=== PATIENT | male | born 1985 | race Caucasian/White ===

== ENCOUNTER → 2020-10-05 09:17 | Outpatient (CLI) | payer BC, SELFPAY ==
--- NOTE | ~2020-10-05 | XR_ITS ---
EXAMINATION: XR shoulder RT min 2V DATE: 10/05/2020 10:01 INDICATION: Right rotator cuff tendinitis. TECHNIQUE: AP internally and externally rotated, AP oblique externally rotated and axillary views of the right shoulder were obtained. COMPARISON: None FINDINGS: Normal alignment. No fracture. Glenohumeral joint is normal. Acromioclavicular joint is normal. Bone island at the right glenoid. Soft tissues are unremarkable. Right lung is clear. IMPRESSION: Negative right shoulder radiographs. Reviewed, dictated and finalized at location A.
== END ==
PROVIDERS: PCP Physician Assistant; Visit Provider Physician Assistant
DX: M67.813 Other specified disorders of tendon, right shoulder (principal)
CPT/HCPCS: 73030

== ENCOUNTER → 2022-10-11 09:39 | Outpatient (CLI) | payer OTHER, SELFPAY ==
--- NOTE | ~2022-10-11 | US_ITS ---
Limited Abdominal Sonogram: Real-time sonographic imaging of the right upper quadrant was performed. Clinical History: Abnormal liver enzymes Findings: The liver appears normal with no evidence of mass lesion or bile duct dilatation. Main por kelly vein demonstrates normal direction of flow. The gallbladder is absent, compatible prior cholecyst ectomy. The common bile duct measures 4 mm. The visualized pancreas, aorta, and IVC are unremarkable . Impression: Status post cholecystectomy, otherwise unremarkable exam. Reviewed, dictated and finalized at location M. Impression: Status post cholecystectomy, otherwise unremarkable exam.
== END ==
PROVIDERS: PCP Internal Medicine Endocrinology, Diabetes & Metabolism; Visit Provider Internal Medicine Endocrinology, Diabetes & Metabolism
DX: R74.01 Elevation of levels of liver transaminase levels (principal); Z90.49 Acquired absence of other specified parts of digestive tract
CPT/HCPCS: 76705

== ENCOUNTER 2024-06-27 13:31 | Emergency (ER) | payer BC, SELFPAY ==
--- NOTE | ~2024-06-27 | XR_ITS ---
Right foot Technique: AP, oblique, and lateral views were obtained. Clinical History: Injury Findings: No acute fracture or dislocation is seen. Chronic avulsion fracture at the talar head noted . Osseous alignment is anatomic. Joint spaces are preserved without erosive or degenerative change. S oft tissues are unremarkable. Impression: No acute abnormality. Chronic avulsion fracture of the talar head. Reviewed, dictated and finalized at location . Impression: No acute abnormality. Chronic avulsion fracture of the talar head.
--- NOTE | 2024-06-27 13:34 | ED_ITS ---
HPI - Extremity Injury (Lower) General Chief Complaint: Extremity Injury, Lower Stated Complaint: Injured Foot Time Seen by Provider: 06/27/24 13:57 Source: patient and RN notes reviewed Mode of arrival: ambulatory Limitations: no limitations History of Present Illness HPI Narrative: 38 year old male presents with concern right foot pain. He reports 2 weeks ago he rolled the ankle continue to have right pain. Reports after the injury he used ice, elevation, ibuprofen, rest. He reports symptoms started to improve but the foot started hurting again. He denies any new injury. He reports lateral foot pain and pain proximal to the digits 3, 4, 5. He denies decreased strength, sensation, range of motion. MD complaint: foot injury Related Data Home Medications ?Medication ?Instructions ?Recorded ?Confirmed ?Last Taken ?Type pantoprazole 40 mg tablet,delayed mg PO 06/27/24 Unknown History release Allergies Allergy/AdvReac Type Severity Reaction Status Date / Time No Known Allergies Allergy Verified 04/03/13 11:15 Review of Systems Review of Systems: CONSTITUTIONAL: Denies malaise, chills, sweats, or fever. SKIN: Denies rash or itching, open skin, laceration, abrasion, redness, warmth, swelling. MUSCULOSKELETAL: Reports right foot pain NEUROLOGIC: Denies numbness, weakness All systems reviewed & are unremarkable except as noted in HPI and below PMFSH Family History Family History (Updated 11/20/13 @ 07:13 by DOCTOR UNKNOWN) Mother Hypertension Father Family history of malignant neoplasm of urinary bladder Social History Social History Smoking status: Never smoker Alcohol intake: current Comments At time of signature, agree with nursing past medical, surgical, social and family history. There is no relevant family history pertinent to the presenting complaint Exam Narrative: GENERAL: Well-appearing, well-nourished, and in no acute distress. HEAD: Normocephalic, atraumatic. EYES: PERRLA, conjunctivae clear NECK: Supple. CHEST: Speaks in full sentences. No respiratory distress. HEART: Regular rate and rhythm. Normal and equal peripheral pulses. EXTREMITIES: Right ankle, foot, digits have grossly normal strength and sensation, grossly normal range of motion. No edema. Healing ecchymosis noted proximal to digits, 3, 4, 5. 5/5 strength with digit flexion and extension. Normal sensation with sensitivity to light touch and pain. No point tenderness. No open wounds, no skin tenting, no devitalized tissue or atrophy, no trophic changes, no obvious deformity, alignment normal, nearby joints and structures intact. Distal pulses palpable and equal bilaterally, skin warm, dry, pink. Capillary refill less than 3 seconds. SKIN: Warm, dry, no rash. NEURO: Alert and oriented x3. PSYCH: Normal mood and affect Course Course Emergency Course: Patient is aware of diagnosis, understands and agrees to treatment plan. Anticipatory guidance given. Patient agrees to follow-up as directed and is aware of reasons to seek care at the emergency department. Portions of this record may have been created with voice recognition software Level of Care: Express Care Visit Vital Signs Vital signs: Reviewed. MDM - Extremity Injury (Lower) MDM Narrative Medical decision making narrative: Patients injury and pain is consistent with musculoskeletal etiology. No signs of neurological or vascular compromise on exam. Compartments and tissues are soft without signs of compartment syndrome. Pain is felt appropriate for further evaluation on an outpatient basis. Critical Care Time Critical Care Time Critical Care Time: No Discharge Plan Discharge Clinical Impression: Acute foot pain Patient Disposition: Home, Self-Care Condition: Stable Instructions: Foot Sprain (ED) Additional Instructions: Avoid activities that cause pain until the pain subsides. Ice to the area 20-30 minutes 4-6 times a day Elevate above heart Elastic wrap or orthopedic shoe as directed for comfort for the next 5-7 days Tylenol for lesser pain Ibuprofen regularly for the next 2-3 days for the inflammation Follow up with Orthopedic if the condition is not improving within 1 week. If the condition worsens with numbness, tingling, decrease sensation with weakness seek treatment in the emergency room immediately. Patient Language: Malagasy Prescriptions: No Action pantoprazole 40 mg tablet,delayed release (DR/EC) PO Follow-up/Referrals: Meagan,QUINTEN Mock [Primary Care Provider] - Brandon Cruz MD [Physician] - Time of Disposition: 14:07
[2024-06-27 13:39] VITALS: BP 124/52; PULSE 86; RESP 16; TEMP 36.6; O2SAT 98
== END 2024-06-27 14:14 | disposition home or self-care (01) ==
PROVIDERS: Emergency Provider Nurse Practitioner; PCP Physician Assistant
DX: M79.671 Pain in right foot (principal)
CPT/HCPCS: 73630; 99213; G0463